=== PATIENT | male | born 1965 | race Caucasian/White ===

== ENCOUNTER 2022-02-09 07:02 | Day surgery (SDC) | payer OTHER ==
[~2022-02-09] VITALS: Ht 165.1 cm; Wt 907.2 kg
[~2022-02-09 07:02] MED LIST: CLONAZEPAM0.5 M1 PO; LAMICTAL100 M1 PO; LIMBITROL1 TAB OR; OLANZAPINE2.5 MG PO
[2022-02-09 08:51] VITALS: BP 114/74
== END 2022-02-09 09:10 | disposition home or self-care (01) ==
LOC: ENDO 07:02 → ORM 08:00 → ENDO 09:10
PROVIDERS: ATTEND Surgery
DX: D12.4 Benign neoplasm of descending colon (principal); D12.3 Benign neoplasm of transverse colon; D12.5 Benign neoplasm of sigmoid colon; D12.8 Benign neoplasm of rectum; F41.9 Anxiety disorder, unspecified; F32.A Depression, unspecified; K64.8 Other hemorrhoids

== ENCOUNTER 2023-04-22 18:47 | Emergency (ER) | payer OTHER ==
[~2023-04-22] VITALS: Ht 165.1 cm; Wt 74.0 kg
[2023-04-22 19:36] VITALS: BP 135/81
== END 2023-04-22 19:40 | disposition home or self-care (01) ==
LOC: ED 18:47
DX: S61.411A Laceration without foreign body of right hand, initial encounter (principal); W26.8XXA Contact with other sharp object(s), not elsewhere classified, initial encounter; Y93.G3 Activity, cooking and baking; Y92.000 Kitchen of unspecified non-institutional (private) residence as the place of occurrence of the external cause